=== PATIENT | female | born 1965 | race Caucasian/White ===

== ENCOUNTER 2019-08-26 18:13 | Emergency (ER) | payer OTHER, SELFPAY ==
--- NOTE | ~2019-08-26 | CT_ITS ---
EXAMINATION: CT abdomen pelvis w con DATE: 08/26/2019 20:53 INDICATION: Abdominal pain. TECHNIQUE: Computed tomography (CT) of the abdomen and pelvis was performed with 100 mL Omnipaque-350 intravenous contrast. Automated exposure control and iterative reconstruction technique were employe d. The dose-length product was 204.96 mGy-cm. COMPARISON: None FINDINGS: Lung bases are clear. Heart size is normal. No pericardial or pleural effusion. Mild intrahepatic dangelo iary ductal dilation with normal caliber common bile duct measuring 3-4 mm. Gallbladder, spleen, panc reas, bilateral adrenal glands and kidneys are normal. Extensive right hemicolectomy with ileocolic a nastomosis in the deep pelvis. No bowel obstruction. Small amount of ascites in the pelvis. Bladder i s normal. The uterus is not identified and has likely been surgically resected. Bilateral adnexa are unremarkable. No pathologically enlarged abdominal or pelvic lymphadenopathy. No pathologically enlar ged abdominal or pelvic lymphadenopathy. 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 Otherwise mild scattered degenerative skeletal changes. IMPRESSION: 1. Mild intrahepatic biliary ductal dilation but with normal caliber common bile duct. Correlate with liver function tests. 2. Nonspecific minimal ascites in the pelvis which could be physiologic. Reviewed, dictated and finalized at location A. HAND IMPRESSION: 1. Mild intrahepatic biliary ductal dilation but with normal caliber common dangelo e duct. Correlate with liver function tests. 2. Nonspecific minimal ascites in the pelvis which could be physiologic.
[2019-08-26 18:14] VITALS: BP 169/76; PULSE 62; RESP 16; TEMP 36.2; O2SAT 100
[2019-08-26] MEDS: DEXTROSE 50% 25 GM/50 ML SYRINGE 50 GM (18:20)
--- NOTE | 2019-08-26 18:20 | PC.NURSE ---
Note pt's blood sugar 29. Preparing to give 2 amps D50 IVP per order Dr. Henderson.
--- NOTE | 2019-08-26 18:24 | ED.GENADULT ---
HPI - General Adult General Chief complaint: Unspecified Stated complaint: unresponsive Time Seen by Provider: 08/26/19 18:17 Source: family and RN notes reviewed Mode of arrival: EMS Limitations: clinical condition History of Present Illness HPI narrative: Pt is a 54 y/o female presenting to the ED via EMS c/o unresponsive. Pt's at bedside reports the pt started feeling bad about an hour ago and states she became unresponsive at [facility] prior to arriving to the ED. 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 Per , Dr. aCrdona is a Gastroenteorlogist who is following her mast cell disease. Pt's states the pt has decreased PO intake of food due to experiencing constipation, and notes the pt is in constant pain that intermittently worsens when the pt is unable to perform a BM for a long time. Pt's states the pt frequently experiences syncope or near-syncope due to her pain, and notes she has not performed a BM in a week. Pt's denies the pt experiencing nausea or vomiting earlier today. EMS state the pt's BS was 77 mg/dL en route to the ED. Pt's reports the pt also has hx's of Appendectomy and IBS, but denies Hx's of Cholecystectomy, Hysterectomy, SBO, DM, HTN, or HLD. HPI is limited due to pt's clinical condition. All information provided by pt's and EMS. Onset (ago): unknown Associated symptoms: other (Decreased PO intake of food; constipation for 1 week; ABD pain) Related Data Home Medications Medication Instructions Recorded Confirmed Unable to Obtain Home Medications 08/26/19 08/26/19 Allergies Allergy/AdvReac Type Severity Reaction Status Date / Time Penicillins Allergy Difficulty Verified 08/26/19 18:26 Breathing Review of Systems Review of Systems: Narrative: ROS is limited due to pt's clinical condition. All information provided by pt's and EMS. All systems reviewed & are unremarkable except as noted in HPI and below Constitutional: Constitutional: Reports poor appetite (Decreased PO intake of food) Gastrointestinal: Gastrointestinal: Reports abdominal pain, Denies nausea, Denies vomiting and Reports other (Constipation for 1 week) Neurologic: Reports syncope and Reports other (Unresponsive) [facility] Past Medical History Medical History (Updated 08/26/19 @ 18:45 by Nikolai Art) Crohn's disease Hemochromatosis Mast cell disease Port-A-Cath in place Surgical History Surgical History H/O colectomy Social History Social History Smoking status: Unknown if ever smoked Gender identity (if verbalized by the patient): Female Exam Narrative: Exam Narrative: General appearance: Well-developed, well-nourished Skin: Normal color Head: Normocephalic, nontraumatic Eyes: Clear conjunctiva ENT: Oropharynx normal, ears normal, nose normal Neck: Supple, nontender Chest and respiratory: Airway patent, no respiratory distress, no accessory muscle use Heart: Regular rate/rhythm Abdomen: Soft, nontender, no organomegaly, quiet bowel sounds Vascular: Normal peripheral pulses, normal capillary refill. Musculoskeletal: Normal range of motion, nontender back Neurologic: Alert and oriented ?3, FOOD AND NUTRITION TEACHER is normal as tested, no gross motor deficit Course Consultations Consultation #1: Discussed case with Pulp Grinder Feeder Dr. Cardona at [facility]. Accepted the pt for admission. Transfer the pt to [facility]. Date: 08/26/19 Time: 21:02 Consultation #2: Discussed case wi
[2019-08-26] MEDS: SODIUM CHLORIDE 0.9% IV 1,000 ML 999 ML (18:35)
--- NOTE | 2019-08-26 18:35 | PC.NURSE ---
In to initiate NS IVF and give pain meds and meds for nausea. Pt again not responding to voice, resting with eyes closed. Opens eyes but is nonverbal. Repeat D-stick 26. Additional D50 given IVP. D10 initiated at 100cc/hr per order Dr. Henderson.
[2019-08-26] MEDS: DEXTROSE 50% 25 GM/50 ML SYRINGE (18:40)
[2019-08-26] MEDS: DEXTROSE 10% 500 ML 100 ML (18:40)
[2019-08-26 18:44] LABS: Glucose Point of Care 26 (65-105)
--- NOTE | 2019-08-26 19:14 | PC.NURSE ---
Repeat blood sugar = 300mg/dl. Report to SHARI Hernandez, to continue care.
[2019-08-26 19:15] VITALS: BP 118/66; PULSE 56; PULSE 66; RESP 12; O2SAT 96
[2019-08-26 19:16] LABS: Glucose Point of Care 300 (65-105)
[2019-08-26] MEDS: SODIUM CHLORIDE 0.9% IV 1,000 ML 999 ML IV CONT (19:45)
[2019-08-26 19:47] LABS: Add Urine Microscopic? YES; Appearance Urine Clear (Clear); Bilirubin Urine Negative (Negative); Blood Urine Negative (Negative); Color Urine Colorless (Yellow); Glucose Urine UA 3+ mg/dL (Negative); Ketones Urine Negative (Negative); Leukocyte Esterase Ur Negative LEU/UL (Negative); Nitrate Urine Negative (Negative); Protein Urine Negative (Negative); RBC Urine 0-2 /hpf (0-2); Specific Grav Ur 1.007 (1.001-1.035); Squamous Epithelial Cell Urine Rare /hpf (Few); Urobilinogen Urine Negative mg/dL (<2.0); WBC Urine 0-3 /hpf
[2019-08-26 19:51] LABS: Basophils Absolute Auto 0.1 K/mm3 (0.0-0.1); Eosinophils Absolute Auto 0.4 K/mm3 (0-0.3); Eosinophils Percent Auto 5.9 % (0-4.4); Hematocrit 37.4 % (37.0-47.0); Hemoglobin 12.2 g/dL (12.0-15.0); Immature Granulocyte Absolute 0.01 K/mm3 (0.00-0.031); Immature Granulocyte Percent A 0.2 % (0-0.5); Lymphocytes Percent Auto 29.7 % (18.3-44.2); Mean Corpuscular HGB Conc 32.6 g/dl (32-36); Mean Corpuscular Hemoglobin 30.4 pg (26-34); Mean Corpuscular Volume 93.3 fl (80-100); Mean Platelet Volume 9.7 fl (7.4-10.4); Monocytes Absolute Auto 0.3 K/mm3 (0.1-0.6); Monocytes Percent Auto 4.5 % (2.6-8.5); Neutrophils Absolute Auto 3.6 K/mm3 (1.3-6.7); Neutrophils Percent Auto 58.7 % (45.5-73.1); Platelet Count Result 260 k/mm3 (150-375); Red Blood Count 4.01 M/mm3 (4.2-5.4); Red Cell Distribution Width 13.1 % (11.5-14.5); White Blood Count 6.1 K/mm3 (4.5-10.0)
[2019-08-26] MEDS: ONDANSETRON INJ 4 MG/2 ML VIAL (19:59)
[2019-08-26 20:02] LABS: Alanine Aminotransferase 19 U/L (4-35); Albumin Level 4.4 g/dL (3.5-5.1); Alkaline Phosphatase 60 U/L (38-126); Aspartate Amino Transferase 34 U/L (14-36); Bilirubin,Total 0.1 mg/dL (0.2-1.3); Blood Urea Nitrogen 3 mg/dL (7-17); Carbon Dioxide 29 mmol/L (22-30); Chloride 101 mmol/L (98-107); Estimated Glomerular Filt Rate > 60; Glucose 132 mg/dL (65-105); Lipase 124 U/L (23-300); Potassium 3.2 mmol/L (3.4-5.0); Sodium 138 mmol/L (137-145)
[2019-08-26 20:57] LABS: Glucose Point of Care 38 (65-105)
--- NOTE | 2019-08-26 20:58 | PC.NURSE ---
RE-CHECKED PT'S POC BG OF 38. EDP DR LUJAN MADE AWARE. D10 IVF'S AT 100 MLS PER HOUR RE-STARTED.
--- NOTE | 2019-08-26 21:42 | ECG_ITS ---
Measurements Intervals Equality Rate: 61 P: 61 OH: 128 QRS: -19 QRSD: 114 T: 34 QT: 418 QTc: 423 Interpretive Statements SINUS RHYTHM INTRAVENTRICULAR CONDUCTION DELAY BASELINE WANDER- AVR, AVL, AVF BORDERLINE ECG Electronically Signed On 08-27-2019 6:53:32 FARM MACHINERY MECHANIC by Mazin Soliz D.O.
--- NOTE | 2019-08-26 22:16 | PC.NURSE ---
Shruthi with [facility] Bed Placement called with bed for patient....bed 665-A
[2019-08-26 22:22] LABS: Glucose Point of Care 100 (65-105)
--- NOTE | 2019-08-26 22:36 | PC.NURSE ---
called [facility] to transport patient to [facility]. ETA 20 minutes.
[2019-08-26 22:45] VITALS: BP 107/69; PULSE 60; RESP 11; O2SAT 100
[2019-08-26 23:00] VITALS: BP 103/65; PULSE 55; RESP 11; O2SAT 99
--- NOTE | 2019-08-27 05:17 | PC.NURSE ---
LATE ENTRY; ON 08/26/2019 AT 2309 UPON TRANSFERRING PT TO [facility]; D10 CONTINUES TO INFUSE AT 100 MLS/HOUR. 100 MLS REMAIN AT THIS TIME OF TRANSFER.
[2019-08-27 10:01] LABS: Glucose Point of Care 34 (65-105)
== END 2019-08-26 23:09 | disposition short-term general hospital (02) ==
LOC: ANHED 19:00
PROVIDERS: Emergency Provider Emergency Medicine
DX: G89.4 Chronic pain syndrome (principal); K50.90 Crohn's disease, unspecified, without complications; R55 Syncope and collapse; D47.02 Systemic mastocytosis; E83.119 Hemochromatosis, unspecified; Z90.49 Acquired absence of other specified parts of digestive tract
CPT/HCPCS: 36415; 74177; 80053; 81001; 81025; 83690; 85025; 93005; 96361; 96374; 96375; 96376; 99285; J2270; J2405; J7030; Q9967